=== PATIENT | female | born 1980 | race Hispanic/Latino ===

== ENCOUNTER 2017-12-26 17:50 | Emergency (ER) | payer BC ==
[~2017-12-26] VITALS: Ht 165.1 cm; Wt 72.1 kg
[~2017-12-26 17:50] MED LIST: ALLEGRA ALLERG180 MG PO; CIPRO500 MG PO; CITRACAL PO; DYMISTA NASAL S23 GM; FISH OIL 1,0001 EAC2 PO; OMEPRAZOLE40 MG PO; VITAMIN D PO; ZYRTEC10 M3 PO
[2017-12-26 19:15] LABS: BASOPHILS % 0.5 % (0.0-1.0); EOSINOPHILS # (AUTO) 0.1 (0.0-0.4); EOSINOPHILS % 1.5 % (0.0-6.0); HEMATOCRIT 38.8 % (34.2-44.1); HEMOGLOBIN 12.6 g/dL (12.0-16.0); LYMPHOCYTES # (AUTO) 1.4 (1.0-3.2); MEAN CORPUSCULAR HEMOGLOBIN 28.6 pg (28-32); MEAN CORPUSCULAR HGB CONC 32.5 g/dL (31-35); MONOCYTES # (AUTO) 0.4 (0.2-0.8); MONOCYTES % 8.1 % (4.4-11.3); NEUTROPHILS # (AUTO) 3.5 (2.1-6.9); NEUTROPHILS % 63.7 % (38.7-80.0); PLATELET COUNT 269 x10e3/uL (140-360); RED BLOOD COUNT 4.41 x10e6/uL (3.6-5.1); RED CELL DISTRIBUTION WIDTH 13.1 % (11.7-14.4)
[2017-12-26 19:27] LABS: BILIRUBIN,URINE NEGATIVE (NEGATIVE); CLARITY,URINE HAZY (CLEAR); COLOR,URINE YELLOW (YELLOW); KETONES,URINE NEGATIVE (NEGATIVE); LEUKOCYTE ESTERASE ,URINE 2+ (NEGATIVE); URINE UROBILINOGEN 0.2 mg/dL (0.2 - 1)
[2017-12-26 19:33] LABS: ALANINE AMINOTRANSFERASE 12 IU/L (0-55); ALBUMIN 4.1 g/dL (3.5-5.0); ALBUMIN/GLOBULIN RATIO 1.1 (0.8-2.0); ALKALINE PHOSPHATASE 60 IU/L (40-150); ANION GAP 10.5 mmol/L (8-16); BLOOD UREA NITROGEN 13 mg/dL (7-26); BUN/CREATININE RATIO 16 (6-25); CARBON DIOXIDE 27 mmol/L (22-29); CHLORIDE 107 mmol/L (98-107); EST GLOMERULAR FILTRATION RATE > 60 ML/MIN (60-); GLUCOSE 104 mg/dL (74-118); POTASSIUM 3.5 mmol/L (3.5-5.1); SODIUM 141 mmol/L (136-145)
[2017-12-26 19:35] LABS: NITRITE,URINE POSITIVE (NEGATIVE); PROTEIN,URINE DIPSTICK 1+ (NEGATIVE)
[2017-12-26 19:52] LABS: WBC,URINE (MAN) >50 /HPF (0-5)
[2017-12-26 19:53] LABS: BACTERIA,URINE MANY /HPF; EPITHELIAL CELLS,URINE FEW /LPF
[2017-12-26] MEDS ORDERED: CEFTRIAXONE SOD 1 GM VIAL IV STA (21:16)
[2017-12-26] MEDS ORDERED: MORPHINE SULFATE 2 MG/ML SYR IV STA (21:41)
[2017-12-26] MEDS ORDERED: KETOROLAC TROMETHAMINE 30 MG/ML VIAL IV STA (21:41)
[2017-12-26] MEDS ORDERED: ONDANSETRON HCL INJ 2 MG/ML VIAL IV STA (21:41)
[2017-12-26] MEDS ORDERED: SODIUM CHLORIDE 0.9% 1000ML 1,000 ML IV STA (21:41)
--- NOTE | 2017-12-26 22:38 | Diagnostic Imaging Report ---
EXAM: CT ABDOMEN/PELVIS WO DATE: 12/26/2017 6:07 PM INDICATION: \S\Bilateral flank pain, history of kidney stones \S\[id number] \S\2019 COMPARISON: None TECHNIQUE: The abdomen and pelvis were scanned using a multidetector helical scanner. Coronal and sagittal reformations were obtained. Routine stone protocol performed. Note that technical issues resulted in a delay in interpretation. IV Contrast: None FINDINGS: LOWER THORAX: No consolidations LIVER/BILIARY: No masses. No ductal dilatation. GALLBLADDER: Cholecystectomy SPLEEN: Unremarkable PANCREAS: Unremarkable ADRENALS: No nodules KIDNEYS: Multiple bilateral nonobstructing renal stones. The largest are seen in the right kidney are seen in the interpolar and lower pole regions measuring 4 to 5 mm. The largest in the left kidney are seen in the upper and lower pole regions measuring 3 to 4 mm. The largest of the right lower, the largest measuring 4 to 5 mm of the right interpolar and lower pole regions. There is a 4 mm proximal right ureteral calculus without hydronephrosis. GI TRACT: No distention, wall thickening or evidence of obstruction. Normal appendix. VESSELS: Unremarkable PERITONEUM/RETROPERITONEUM: No free air or fluid LYMPH NODES: Scattered calcified mesenteric right lower quadrant nodes, likely postinfectious or inflammatory. REPRODUCTIVE ORGANS/BLADDER: Unremarkable BONES: No suspicious bone lesions. IMPRESSION: 4 mm right proximal ureteral calculus without hydronephrosis. Multiple nonobstructing bilateral renal calculi. Signed by: Dr Adelia Avina MD on 12/26/2017 10:34 PM
== END 2017-12-26 23:31 | disposition home or self-care (01) ==
LOC: ER 17:50
DX: M54.9 Dorsalgia, unspecified (principal); R10.9 Unspecified abdominal pain; N30.91 Cystitis, unspecified with hematuria; N20.1 Calculus of ureter
CPT/HCPCS: 36415; 74176; 80053; 81001; 81025; 85025; 87086; 87186; 88300; 99284; J0696; J1885; J2405; J7030

== ENCOUNTER → 2018-01-27 | Day surgery (SDC) | payer BC ==
[~2018-01-27] MED LIST changes: +BACTRIM DS TAB1 EACH PO; +BELLADONNA/OPIUM 60 MG SUPP PR ONE; +CARAFATE1 GM/10 ML PO; +CEFTRIAXONE SOD 1 GM VIAL ONE; +COLESTID1 G PO; +DEXAMETHASONE SOD PHOS INJ 4 MG/ML VIAL ONE; +FENTANYL CITRATE/PF 100MCG/2 ML INJ ONE; +IOPAMIDOL 610MG/1ML 300 MG/ML VIAL IV ONE; +LIDOCAINE HCL 2% LOCAL INJ 5 ML SDV VIAL INJ ONE; +MACROBID 100 M100 MG PO; +MIDAZOLAM HCL 2 MG/2 ML VIAL ONE; +ONDANSETRON HCL INJ 2 MG/ML VIAL ONE; +OXYBUTYNIN CHLOR5 MG PO; +PROPOFOL IV EMULSION 10 MG/ML 20 ML VIAL ONE; +PROZAC40 MG PO; +SEVOFLURANE INHAL SOLN 250 ML PEN BTL ONE; +TYLENOL WITH C1 EACH PO
--- OUTSIDE RECORDS SUMMARY | 2018-01-27 10:09 | XMS REPORT ---
[facility] Address Unknown Phone Unavailable Care Team Providers Care Cellular Phone Repairer Name Role Phone MATILDA WILLIAM Unavailable Unavailable Problems This patient has no known problems. Allergies, Adverse Reactions, Alerts This patient has no known allergies or adverse reactions. Medications This patient has no known medications. Results Test Description Test Time Test Comments Text Results Atomic Results Result Comments CT ABDOMEN/PELVIS WO [place] [address] Patient Name: THOMAS MAGALLANES MR #: [id number] : 1980 Age/Sex: 37/F Req #: [id number] Adm Physician: Ordered by: REINIER BRAVO [employer] SAL[employer] SERVICE TECHNICIAN Report #: [id number] Location: ER Room/Bed: Procedure: [id number] CT/CT ABDOMEN/PELVIS WO Exam Date: 12/26/17 Exam Time: 2019 REPORT STATUS: Signed EXAM: CT ABDOMEN/ PELVIS WO DATE: 12/26/2017 6:07 PM INDICATION: S Bilateral flank pain, history of kidney stones S [id number] COMPARISON: None TECHNIQUE: The abdomen and pelvis were scanned using a multidetector helical scanner. Coronal and sagittal reformations were obtained. Routine stone protocol performed. Note that technical issues resulted in a delay in interpretation. IV Contrast: None FINDINGS: LOWER THORAX: No consolidations LIVER/ BILIARY: No masses. No ductal dilatation. GALLBLADDER: Cholecystectomy SPLEEN: Unremarkable PANCREAS: Unremarkable ADRENALS: No nodules KIDNEYS: Multiple bilateral nonobstructing renal stones. The largest are seen in the right kidney are seen in the interpolar and lower pole regions measuring 4 to 5 mm. The largest in the left kidney are seen in the upper and lower pole regions measuring 3 to 4 mm. The largest of the right lower, the largest measuring 4 to 5 mm of the right interpolar and lower pole regions. There is a 4 mm proximal right ureteral calculus without hydronephrosis. GI TRACT : No distention, wall thickening or evidence of obstruction. Normal appendix. VESSELS: Unremarkable PERITONEUM/RETROPERITONEUM: No free air or fluid LYMPH NODES: Scattered calcified mesenteric right lower quadrant nodes, likely postinfectious or inflammatory. REPRODUCTIVE ORGANS/BLADDER: Unremarkable BONES: No suspicious bone lesions. IMPRESSION: 4 mm right proximal ureteral calculus without hydronephrosis. Multiple nonobstructing bilateral renal calculi. Signed by: Dr Kayy Avina MD on 12/26/2017 10: 34 PM Dictated By: KAYY AVINA MD 33 Transcribed By: STAN on 12/26/172233 COPY TO: REINIER BRAVO NP
[2018-01-27 11:08] LABS: BASOPHILS % 0.5 % (0.0-1.0); EOSINOPHILS # (AUTO) 0.1 (0.0-0.4); EOSINOPHILS % 1.3 % (0.0-6.0); HEMATOCRIT 40.5 % (34.2-44.1); HEMOGLOBIN 13.4 g/dL (12.0-16.0); LYMPHOCYTES # (AUTO) 1.9 (1.0-3.2); LYMPHOCYTES % 31.7 % (18.0-39.1); MEAN CORPUSCULAR HEMOGLOBIN 28.4 pg (28-32); MEAN CORPUSCULAR HGB CONC 33.1 g/dL (31-35); MEAN CORPUSCULAR VOLUME 85.8 fL (81-99); MONOCYTES # (AUTO) 0.4 (0.2-0.8); MONOCYTES % 6.9 % (4.4-11.3); NEUTROPHILS # (AUTO) 3.6 (2.1-6.9); NEUTROPHILS % 59.4 % (38.7-80.0); PLATELET COUNT 172 x10e3/uL (140-360); RED BLOOD COUNT 4.72 x10e6/uL (3.6-5.1); RED CELL DISTRIBUTION WIDTH 13.4 % (11.7-14.4)
--- NOTE | 2018-01-27 11:16 | Diagnostic Imaging Report ---
PROCEDURE:X-RAY ABDOMEN - KUB COMPARISON:CT abdomen/pelvis 12/26/2017. INDICATIONS:PREOPERATIVE XRAY FOR ESWL FINDINGS: Bowel: No dilated bowel loops. Bowel gas pattern is unremarkable. Calcifications: Numerous calcifications overlie the right renal shadow, predominately in the interpolar and lower pole regions measuring up to 4 mm. Cluster of calcifications overlying the left renal shadow or in the lower pole and measure up to 4 mm. A calcification in the right ureter measures 3 mm at the inferior endplate of L3. No calcification along the course of left ureter. Organomegaly: None. The gallbladder is absent. Bones/soft tissues: Unremarkable. CONCLUSION: Bilateral intrarenal calculi, the larger burden in the right kidney. Calculus in the mid right ureter as described above. Dictated by: Evangelina Yao M.D. on 01/27/2018 at 11:16 Electronically approved by: Evangelina Yao M.D. on 01/27/2018 at 11:16
[2018-01-27 11:38] LABS: ALANINE AMINOTRANSFERASE 15 IU/L (0-55); ALBUMIN 4.5 g/dL (3.5-5.0); ALBUMIN/GLOBULIN RATIO 1.3 (0.8-2.0); ALKALINE PHOSPHATASE 60 IU/L (40-150); BLOOD UREA NITROGEN 13 mg/dL (7-26); BUN/CREATININE RATIO 14 (6-25); CALCIUM 9.3 mg/dL (8.4-10.2); CARBON DIOXIDE 24 mmol/L (22-29); CHLORIDE 103 mmol/L (98-107); CREATININE, SERUM 0.93 mg/dL (0.57-1.11); EST GLOMERULAR FILTRATION RATE > 60 ML/MIN (60-); GLUCOSE 82 mg/dL (74-118); SODIUM 138 mmol/L (136-145)
--- NOTE | 2018-03-21 14:57 | Operative Report ---
DATE OF PROCEDURE: January 27, 2018 PREOPERATIVE DIAGNOSES 1. Right nephrolithiasis. 2. Right proximal ureterolithiasis. 3. Right distal ureterolithiasis. 4. Right renal colic. 5. Gross hematuria. 6. Left ureteral stricture. 7. Right hydronephrosis due to stone. 8. Left hydronephrosis due to stricture. POSTOPERATIVE DIAGNOSES 1. Right nephrolithiasis. 2. Right proximal ureterolithiasis. 3. Right distal ureterolithiasis. 4. Right hydronephrosis due to stone. 5. Left ureteral stricture. 6. Left hydronephrosis due to stricture. 7. Gross hematuria. 8. Urethral hypermobility. PROCEDURES PERFORMED 1. Right-sided extracorporeal shockwave lithotripsy to the right kidney stone (separately performed for the kidney stone). 2. Right proximal ureteral extracorporeal shockwave lithotripsy (separately performed for the right proximal ureteral stone). 3. Right ureteroscopy with stone manipulation and extraction (separately performed for the distal right ureteral stone). 4. Cystourethroscopy with bilateral ureteral catheterization and retrograde ureteropyelography (separately performed for the gross hematuria). 5. Right cystourethroscopy with insertion of right indwelling ureteral stent (separately performed to relieve hydronephrosis). 6. Left ureteroscopy with dilation of stricture (separately performed for diagnosis of stricture). 7. Urological services for supervision and interpretation for ureteroscopy. 8. Cystourethroscopy with insertion of left indwelling ureteral stent (separately performed to relieve the hydronephrosis). 9. Interpretation of retrograde ureteropyelography. 10. Supervision of fluoroscopy; no radiologist present. 11. Pelvic examination under anesthesia. ANESTHESIA: General. COMPLICATIONS: None. CLINICAL SUMMARY: Radha Willis is a 37-year-old woman who presents with stones. She is brought to the OR for management. She is aware of the risks of bleeding, infection, injury to adjacent structures, and need for additional procedures and elected to proceed. OPERATIVE PROCEDURE IN DETAIL: Informed consent was verified. Radha Willis was properly identified, taken to the operating room, and placed on the lithotripsy table in supine position. Anesthesia was uneventfully begun. The patient's 8-mm lower caliceal stone on the right hand side was localized by the aide of fluoroscopy. Total of 1000 shocks were delivered to this stone with some degree of fragmentation noted in this kidney. The lithotripsy was then localized on the 3-mm right mid-ureteral stone and a total of 2000 shocks were delivered with fragmentation of it. The patient then carefully gently repositioned in dorsal lithotomy position with all pressure points well padded, and her genitalia were prepared and draped in usual sterile fashion. The 22.5-Slovenian cystoscope sheath with visual obturator in place was atraumatically inserted in the patient's urethra and the bladder was drained. Panendoscopy of the bladder revealed no suspicious gross lesions, no tumors, no stones, and no diverticula. Normally positioned and configured ureteral orifices were identified. A ureteral catheter was inserted into the right ureter and retrograde ureteropyelogram was performed. It was inserted in the left ureter and retrograde ureteropyelogram was performed. A guidewire was then placed into the right ureter and guided to the level of the patient's kidney. Semirigid ureteroscope was then placed alongside the guidewire into the distal ureter where we identified a stone. The stone was grasped with the basket, manipulated, and atraumatically extracted and sent for chemical analysis. With cystoscopic and fluoroscopic guidance, a right-sided indwelling ureteral stent was then placed. It was coiled in the patient's kidney as well as patient's bladder. The retaining suture was cut short. A guidewire was then placed into the left ureter. A semirigid ureteroscope was then placed along side the guidewire into the left ureter where we identified a stricture. We gently dilated across this stricture utilizing the ureteroscope. Once we entered the proximal ureter, it appeared to be more dilated. With cystoscopic and fluoroscopic guidance, a left-sided indwelling ureteral stent was then placed. It was coiled in the patient's kidney as well as the patient's bladder with the retaining sutures cut short. Interpretation of retrograde ureteropyelography: Contrast was instilled in the retrograde fashion bilaterally. Stones pipe foreman to the lower caliceal stones on the right hand side in the kidney. There was a proximal mid-ureteral stone in the mid-ureter. There was a distal ureteral stone present. You could see the ureteral stricture on fluoroscopy, and there was hydronephrosis on the left hand side proximal to it. The stents were in good position coiled in patient's kidney as well as the patient's bladder at the end of the case. Patient's bladder was then drained. Cystoscope was withdrawn. Pelvic examination under anesthesias revealed urethral hypermobility. No tumors were palpable to bimanual examination. There were no obvious mucosal lesions. The patient was uneventfully reversed from anesthesia and taken to recovery in stable condition. There were no complications during the procedure. She tolerated the procedure well. Explicit postoperative instructions were given. We will follow the patient up in the office. Eventually, we will take the patient back to the operating room to remove her stents, perform bilateral ureteroscopies, and manage any stones remaining with laser. Job#: [id number] JIGNESH cc:Jamie Cordova MD
== END | disposition home or self-care (01) ==
LOC: OR 10:07
PROVIDERS: ATTEND Urology
DX: N13.2 Hydronephrosis with renal and ureteral calculous obstruction (principal); N13.1 Hydronephrosis with ureteral stricture, not elsewhere classified; N39.0 Urinary tract infection, site not specified; N36.41 Hypermobility of urethra; K21.9 Gastro-esophageal reflux disease without esophagitis; F32.9 Major depressive disorder, single episode, unspecified; Z87.891 Personal history of nicotine dependence; Z84.1 Family history of disorders of kidney and ureter
CPT/HCPCS: 36415; 50590; 52332; 52344; 74018; 80053; 81025; 83970; 84550; 85025; 88300; C1758; C2617; J0696; J1100; J2001; J2250; J2405; Q9967

== ENCOUNTER → 2018-02-12 | Day surgery (SDC) | payer BC ==
[~2018-02-12] MED LIST changes: -BELLADONNA/OPIUM 60 MG SUPP PR ONE; -CEFTRIAXONE SOD 1 GM VIAL ONE; -DEXAMETHASONE SOD PHOS INJ 4 MG/ML VIAL ONE; -IOPAMIDOL 610MG/1ML 300 MG/ML VIAL IV ONE; -LIDOCAINE HCL 2% LOCAL INJ 5 ML SDV VIAL INJ ONE; -ONDANSETRON HCL INJ 2 MG/ML VIAL ONE; -SEVOFLURANE INHAL SOLN 250 ML PEN BTL ONE
--- NOTE | 2018-02-12 18:13 | Operative Report ---
DATE OF PROCEDURE: February 12, 2018 REFERRING PHYSICIAN: Dr. Jamie Reyes. PROCEDURE PERFORMED: Esophagogastroduodenoscopy with esophageal dilatation and biopsies and a colonoscopy with polypectomy and biopsies. INDICATIONS FOR ESOPHAGOGASTRODUODENOSCOPY: Dysphagia, nausea, heartburn and indigestion. INDICATIONS FOR COLONOSCOPY: Chronic diarrhea, hematochezia. MEDICATION: Patient was done under MAC. Please see anesthesiologist's note. PROCEDURE: With patient in the left lateral decubitus position, flexible fiberoptic Olympus gastroscope was introduced into the esophagus under direct visualization without any difficulty. There was some patchy erythema noted in distal esophagus. There was a mild stricture noted at the GE junction that was dilated to a size 52-[place] Landa. The scope was then advanced with ease into the stomach and mucosa overlying the antrum and the body revealed some patchy erythema and mild to moderate edema and biopsies were obtained and sent to stain for H. pylori. Hyperplastic appearing polyps were noted in the body of the stomach. Some were partially excised with cold biopsy forceps. The pylorus was of normal contour and shape. Was intubated with ease and the scope was advanced all the way to the 2nd portion of the duodenum. The scope was then withdrawn slowly and mucosa overlying the proximal 2nd portion grossly appeared to be within normal limits. Some of the folds might be a little scalloped and biopsies were obtained to rule out sprue. The mucosa overlying the duodenal bulb appeared to be within normal limits. The scope was then withdrawn back into the stomach and retroflexed and mucosa overlying the fundus and the cardia appeared to be within normal limits. The scope was then straightened out. The stomach was decompressed. Scope was subsequently withdrawn. Patient tolerated the procedure well. IMPRESSION: 1. Distal esophagitis, mild. 2. Esophageal stricture at gastroesophageal junction dilated to a size 52-[place] Landa. 3. Gastritis, biopsied. Biopsy sent to stain for H. pylori. 4. Rule out sprue. PLAN: Follow up histology. Continue omeprazole 40 mg 1 p.o. a.c. b.i.d. PROCEDURE: Patient was then turned around and after adequate lubrication of the anal canal, a flexible fiberoptic Olympus colonoscope was inserted into the rectum with ease and advanced all the way to the cecum. Mucosa overlying the cecum appeared to be within normal limits. The ileocecal valve was intubated. Scope was advanced into the terminal ileum. Biopsies were obtained. The scope was then withdrawn back into the colon. It was then withdrawn slowly. Mucosa overlying the ascending and transverse colon appeared to be within normal limits. There were mild inflammatory changes noted in the left colon. Multiple random biopsies were obtained. Two polyps were hot biopsied from the sigmoid colon and biopsies were obtained from the rectum. The scope was then retroflexed into the distal rectum. Small internal hemorrhoids were noted, none of which was actively bleeding. The scope was then straightened out. The rectosigmoid area as well as the distal rectal area were decompressed. The scope was subsequently withdrawn after securing an adequate stool specimen that was sent for the appropriate stool studies. Patient tolerated the procedure well. IMPRESSION 1. Terminal ileum, biopsied. 2. Mild patchy left-sided colitis. Random biopsies obtained. 3. Sigmoid colon polyps times 2, hot biopsied. 4. Proctitis. PLAN: Follow up histology. Follow up stool studies. Initiate VSL#3 DS one p.o. b.i.d. The patient might benefit from a followup colonoscopy in 5 years. Job#: [id number] cc:JAMIE REYES MD
[2018-02-12 18:49] LABS: WBC,FECAL (FECAL LACTOFERRIN) POSITIVE (NEGATIVE)
[2018-02-13 13:13] LABS: C DIFFICILE TOXIN A&B AMP PROB **POSITIVE** (NEGATIVE)
== END | disposition home or self-care (01) ==
LOC: OR 20:16
PROVIDERS: ATTEND Internal Medicine Gastroenterology
DX: K29.70 Gastritis, unspecified, without bleeding (principal); K63.5 Polyp of colon; K31.7 Polyp of stomach and duodenum; K22.2 Esophageal obstruction; K51.50 Left sided colitis without complications; K20.9 Esophagitis, unspecified; K62.89 Other specified diseases of anus and rectum; D72.820 Lymphocytosis (symptomatic); Z01.812 Encounter for preprocedural laboratory examination; Z68.25 Body mass index [BMI] 25.0-25.9, adult; Z87.891 Personal history of nicotine dependence
CPT/HCPCS: 43239; 43450; 45380; 45384; 81025; 83630; 83993; 86039; 87045; 87177; 87328; 87493; J2250

== ENCOUNTER 2018-02-13 20:57 | Emergency (ER) | payer BC ==
[~2018-02-13] VITALS: Ht 165.1 cm; Wt 72.1 kg
[~2018-02-13 20:57] MED LIST changes: -FENTANYL CITRATE/PF 100MCG/2 ML INJ ONE; -MIDAZOLAM HCL 2 MG/2 ML VIAL ONE; -PROPOFOL IV EMULSION 10 MG/ML 20 ML VIAL ONE
[2018-02-13 22:53] LABS: BASOPHILS % 0.3 % (0.0-1.0); EOSINOPHILS # (AUTO) 0.2 (0.0-0.4); EOSINOPHILS % 2.5 % (0.0-6.0); HEMATOCRIT 36.5 % (34.2-44.1); LYMPHOCYTES # (AUTO) 1.7 (1.0-3.2); MEAN CORPUSCULAR HEMOGLOBIN 28.4 pg (28-32); MEAN CORPUSCULAR HGB CONC 32.9 g/dL (31-35); MEAN CORPUSCULAR VOLUME 86.3 fL (81-99); MONOCYTES # (AUTO) 0.6 (0.2-0.8); MONOCYTES % 9.1 % (4.4-11.3); NEUTROPHILS # (AUTO) 4.3 (2.1-6.9); NEUTROPHILS % 62.8 % (38.7-80.0); PLATELET COUNT 291 x10e3/uL (140-360); RED BLOOD COUNT 4.23 x10e6/uL (3.6-5.1); RED CELL DISTRIBUTION WIDTH 13.6 % (11.7-14.4)
[2018-02-13 23:01] LABS: BILIRUBIN,URINE NEGATIVE (NEGATIVE); CLARITY,URINE CLOUDY (CLEAR); COLOR,URINE AMBER (YELLOW); KETONES,URINE NEGATIVE (NEGATIVE); LEUKOCYTE ESTERASE ,URINE 2+ (NEGATIVE); NITRITE,URINE NEGATIVE (NEGATIVE); PREGNANCY TEST, URINE NEGATIVE (NEGATIVE); URINE UROBILINOGEN 0.2 mg/dL (0.2 - 1)
[2018-02-13 23:03] LABS: PROTEIN,URINE DIPSTICK 2+ (NEGATIVE)
[2018-02-13 23:18] LABS: BACTERIA,URINE MANY /HPF; CALCIUM OXALATE CRYSTALS,UR FEW (FEW); EPITHELIAL CELLS,URINE FEW /LPF; RBC,URINE >50 /HPF (0-5); WBC,URINE (MAN) >50 /HPF (0-5)
[2018-02-13 23:19] LABS: ALANINE AMINOTRANSFERASE 14 IU/L (0-55); ALBUMIN 3.7 g/dL (3.5-5.0); ALKALINE PHOSPHATASE 60 IU/L (40-150); ANION GAP 11.5 mmol/L (8-16); BLOOD UREA NITROGEN 11 mg/dL (7-26); BUN/CREATININE RATIO 14 (6-25); CALCIUM 9.6 mg/dL (8.4-10.2); CARBON DIOXIDE 23 mmol/L (22-29); CHLORIDE 102 mmol/L (98-107); CREATININE, SERUM 0.79 mg/dL (0.57-1.11); EST GLOMERULAR FILTRATION RATE > 60 ML/MIN (60-); GLUCOSE 96 mg/dL (74-118); POTASSIUM 3.5 mmol/L (3.5-5.1); SODIUM 133 mmol/L (136-145)
[2018-02-13 23:19] LABS: MUCUS,URINE FEW (RARE)
--- NOTE | 2018-02-13 23:32 | Diagnostic Imaging Report ---
ABDOMEN-1VIEW (KUB) Clinical history: \S\ASSES RIGHT URETERAL STENT PLACEMENT \S\Y Technique: AP view abdomen Comparison: 01/27/2018, CT 12/26/2017 Findings: Status post bilateral double-J ureteral stent placement projecting from the expected renal pelvis to the bladder. Bilateral nephrolithiasis. 4 to 5 mm stone is seen along the right proximal ureteral stent. Right pelvic phlebolith. Nonobstructive bowel gas pattern. Cholecystectomy clips. Impression: Bilateral double-J ureteral stents project from expected renal pelvis to the bladder. 4 to 5 mm stone is seen along the right proximal ureteral stent. Bilateral nephrolithiasis. Signed by: Dr Adelia Avina MD on 02/13/2018 11:28 PM
[2018-02-14 00:15] VITALS: BP 115/79
== END 2018-02-14 00:20 | disposition home or self-care (01) ==
LOC: ER 20:57
DX: R10.30 Lower abdominal pain, unspecified (principal); N30.91 Cystitis, unspecified with hematuria
CPT/HCPCS: 36415; 74018; 80053; 81001; 81025; 85025; 87086; 99284

== ENCOUNTER 2018-03-29 21:31 | Emergency (ER) | payer BC ==
[~2018-03-29] VITALS: Ht 165.1 cm; Wt 72.1 kg
--- OUTSIDE RECORDS SUMMARY | 2018-03-29 21:35 | XMS REPORT | Continuity of Care Document ---
Author Author [facility] Organization [facility] Address [address] [place] [address] Phone Unavailable Care Team Providers Care Item Processing Clerk Name Role Phone HOLDEN REYES MD PCP Insurance Providers Guarantor Radha Magallanes Address [address] [place] [address] Email [email or web address] Payer [facility] Ppo Policy Number [id number] Subscriber's Name Magallanes,Radha Relationship 18 Self / Same As Patient Group Number [id number] Group Name [facility] Effective Date 17 Advance Directives Directive Response Recorded Date/Time Does the patient have an advance directive? No 06/17/13 2:08pm If yes, is advance [facility]? No 06/17/13 2:08pm If not on file with [facility] will patient provide a copy? No 06/17/13 2:08pm Do you have a Directive to Physician? No 02/13/18 8:54pm Do you have a Medical Power of Card Fixer? No 02/13/18 8:54pm Do you have an out of hospital Do Not Resuscitate Order? No 02/13/18 8:54pm Do you have any special needs we should be aware of? No 02/13/18 8:54pm Do you have a support person here with you today? Yes 02/13/18 8:54pm Did patient receive Notice of Privacy Practices? Yes 02/13/18 8:54pm Did patient receive patient rights and responsibilities? Yes 02/13/18 8:54pm Problems No problem information available. Medications Current Home Medications Medication Dose Units Route Directions Days Qty Instructions Start Date Acetaminophen With Codeine (Tylenol With Codeine #3 Tablet) 1 Each Tablet 300 Mg Oral As Needed Colestipol Hcl (Colestid) 1 G Tab 1 Gm Oral Daily Fluoxetine Hcl (Prozac) 40 Mg Capsule 40 Mg Oral Daily Nitrofurantoin Monohyd/M-Cryst (Macrobid 100 Mg Capsule) 100 Mg Capsule 100 Mg Oral Daily Omeprazole 40 Mg Capsule.dr 40 Mg Oral Twice A Day Oxybutynin Chloride 5 Mg Tablet 5 Mg Oral Tidprn 30 Tab Sucralfate (Carafate) 1 Gm/10 Ml Oral.susp 1 Gm Oral Four Times Daily Past Home Medications Medication Directions Ordered Status Azelastine/Fluticasone (Dymista Nasal [place]) 23 Gm [place].pump, Nasal Twice A Day Discontinued Cetirizine Hcl (Zyrtec) 10 Mg Capsule, 10 Mg Oral Daily Discontinued Ciprofloxacin Hcl (Cipro) 500 Mg Tablet, 500 Mg Oral Every 12 Hours Discontinued Fexofenadine Hcl (Sophia Allergy) 180 Mg Tablet, 180 Mg Oral Daily Discontinued [place]-3 Fatty Acids/Fish Oil (Fish Oil 1,000 Mg Capsule) 1 Each Capsule, Oral Three Times A Day Discontinued Sulfamethoxazole/Trimethoprim (Bactrim Ds Tablet) 1 Each Tablet, 1 Tab Oral Daily Discontinued Social History Smoking Status Start Date Stop Date Never Smoker Hospital Discharge Instructions No hospital discharge instruction information available. Plan of Care Discharge Date 02/14/18 12:20am Disposition HOME, SELF-CARE Condition at Discharge Stable Instructions/Education Provided Urinary Tract Infection - Women Forms Provided Work/School Excuse Prescriptions See Medication Section Referrals DOLORES GRACE MD Order Date: Call for an appointment Address: [address] [place] [id number] Additional Instructions/Education TAKE MEDS DIRECTED FOLLOW UP WITH UROLOGIST INCREASE FLUID INTAKE RETURN TO THE ER NEEDED Functional Status No functional status information available. Allergies, Adverse Reactions, Alerts No known allergies. Immunizations No immunization information available. Vital Signs Acute Vital Signs Vital Response Date/Time Temperature (Fahrenheit) 98.0 degrees F (97.6 - 99.5) 02/14/2018 12:15am Pulse Pulse Rate (adult) 79 bpm (60 - 90) 02/14/2018 12:15am Respiratory Rate 18 bpm (12 - 24) 02/14/2018 12:15am Blood Pressure 115/79 mm Hg 02/14/2018 12:15am Height 5 ft 5 in 02/13/2018 9:18pm Weight 159 lb 02/13/2018 9:18pm Body Mass Index 26.5 kg/m^2 02/13/2018 9:18pm Results Laboratory Results Test Name Result Units Flags Reference Collection Date/Time Result Date/ Time Comments Uric Acid 3.2 mg/dL 2.6-8.0 01/27/2018 10:55am 01/27/2018 11:38am Parathyroid Hormone 31 pg/mL 15-65 01/27/2018 10:55am 01/28/2018 7: 08am Calcium (Send out) 9.8 mg/dL 8.7-10.2 01/27/2018 10:55am 01/28/2018 7: 08am Parathyroid Hormone Interpretation Comment . 01/27/2018 10:55am 01/28 7:08am Interpretation Intact PTH Calcium (pg/mL) (mg/dL) Normal 15 - 65 8.6 - 10.2 Primary Hyperparathyroidism >65 >10.2 Secondary Hyperparathyroidism >65 <10.2 Non-Parathyroid Hypercalcemia <65 >10.2 Hypoparathyroidism <15 < 8.6 Non-Parathyroid Hypocalcemia 15 - 65 < 8.6 Performed at: - [facility] [id number] Lower In Supervisor: Modesto Bradley MD, Phone: [phone] Performed at: - [facility] [id number] Lower In Supervisor: Lawson Garcia MD, Phone: [phone] Stool Lactoferrin (LAB) POSITIVE H NEGATIVE 02/12/2018 4:53pm 2017 6:49pm Testing on stool aspirate specimens is outside american history teacher claims since specimen type not validated on this assay. Anti-Nuclear Antibody Screen Negative . 02/11/2018 2:35pm 02/12/2018 12:07pm Negative <1:80 Borderline 1:80 Positive >1:80 Performed at: HD - [facility] [id number] Lower In Supervisor: Modesto Bradley MD, Phone: [phone] Clostridium Difficile Toxin A & B POSITIVE H NEGATIVE 02/12/2018 4: 53pm 02/13/2018 1:13pm Results called Kristen at 1312 on 02/13/18 by Danica Kay. RB OK. Results called to KATIA NOEL in infection control at 1312 on 02/13/18 by Danica Kay. Testing on stool aspirate specimens is outside american history teacher claims since specimen type not validated on this assay. White Blood Count 6.89 x10e3/uL 4.8-10.8 02/13/2018 9:25pm 02/13/2018 11:00pm Red Blood Count 4.23 x10e6/uL 3.6-5.1 02/13/2018 9:25pm 02/13/2018 11: 00pm Hemoglobin 12.0 g/dL 12.0-16.0 02/13/2018 9:25pm 02/13/2018 11:00pm Hematocrit 36.5 % 34.2-44.1 02/13/2018 9:25pm 02/13/2018 11:00pm Mean Corpuscular Volume 86.3 fL 81-99 02/13/2018 9:25pm 02/13/2018 11: 00pm Mean Corpuscular Hemoglobin 28.4 pg 28-32 02/13/2018 9:25pm 02/13/2018 11:00pm Mean Corpuscular Hemoglobin Concent 32.9 g/dL 31-35 02/13/2018 9:25pm 02/13/2018 11:00pm Red Cell Distribution Width 13.6 % 11.7-14.4 02/13/2018 9:25pm 2017 11:00pm Platelet Count 291 x10e3/uL 140-360 02/13/2018 9:25pm 02/13/2018 11: 00pm Neutrophils (%) (Auto) 62.8 % 38.7-80.0 02/13/2018 9:25pm 02/13/2018 11 :00pm Lymphocytes (%) (Auto) 25.0 % 18.0-39.1 02/13/2018 9:25pm 02/13/2018 11 :00pm Monocytes (%) (Auto) 9.1 % 4.4-11.3 02/13/2018 9:25pm 02/13/2018 11: 00pm Eosinophils (%) (Auto) 2.5 % 0.0-6.0 02/13/2018 9:25pm 02/13/2018 11: 00pm Basophils (%) (Auto) 0.3 % 0.0-1.0 02/13/2018 9:25pm 02/13/2018 11: 00pm IM GRANULOCYTES % 0.3 % 0.0-1.0 02/13/2018 9:25pm 02/13/2018 11:00pm Neutrophils # (Auto) 4.3 2.1-6.9 02/13/2018 9:25pm 02/13/2018 11: 00pm Lymphocytes # (Auto) 1.7 1.0-3.2 02/13/2018 9:25pm 02/13/2018 11: 00pm Monocytes # (Auto) 0.6 0.2-0.8 02/13/2018 9:25pm 02/13/2018 11:00pm Eosinophils # (Auto) 0.2 0.0-0.4 02/13/2018 9:25pm 02/13/2018 11: 00pm Basophils # (Auto) 0.0 0.0-0.1 02/13/2018 9:25pm 02/13/2018 11:00pm Absolute Immature Granulocyte (auto 0.02 x10e3/uL 0-0.1 02/13/2018 9: 25pm 02/13/2018 11:00pm Urine Color GIULIANA H YELLOW 02/13/2018 10:55pm 02/13/2018 11:03pm Urine Clarity CLOUDY H CLEAR 02/13/2018 10:55pm 02/13/2018 11:03pm Urine Specific [place] 1.020 1.010-1.025 02/13/2018 10:55pm 2017 11:03pm Urine pH 6 5 - 7 02/13/2018 10:55pm 02/13/2018 11:03pm Urine Leukocyte Esterase 2+ H NEGATIVE 02/13/2018 10:55pm 02/13/2018 11:03pm Urine Nitrite NEGATIVE NEGATIVE 02/13/2018 10:55pm 02/13/2018 11: 03pm Urine Protein 2+ H NEGATIVE 02/13/2018 10:55pm 02/13/2018 11:03pm Urine Glucose (UA) NEGATIVE NEGATIVE 02/13/2018 10:55pm 02/13/2018 11 :03pm Urine Ketones NEGATIVE NEGATIVE 02/13/2018 10:55pm 02/13/2018 11: 03pm Urine Urobilinogen 0.2 mg/dL 0.2 - 1 02/13/2018 10:55pm 02/13/2018 11: 03pm Urine Bilirubin NEGATIVE NEGATIVE 02/13/2018 10:55pm 02/13/2018 11: 03pm Urine Blood 4+ H NEGATIVE 02/13/2018 10:55pm 02/13/2018 11:03pm Urine WBC >50 /HPF H 0-5 02/13/2018 10:55pm 02/13/2018 11:19pm Urine RBC >50 /HPF H 0-5 02/13/2018 10:55pm 02/13/2018 11:19pm Urine Bacteria MANY /HPF H NONE 02/13/2018 10:55pm 02/13/2018 11:19pm Urine Epithelial Cells FEW /LPF NONE 02/13/2018 10:55pm 02/13/2018 11: 19pm Urine Calcium Oxalate Crystals FEW FEW 02/13/2018 10:55pm 02/13/2018 11:19pm Urine Mucus FEW H RARE 02/13/2018 10:55pm 02/13/2018 11:19pm Urine Test NEGATIVE NEGATIVE 02/13/2018 10:55pm 02/13/2018 11:01pm Sodium Level 133 mmol/L L 136-145 02/13/2018 9:25pm 02/13/2018 11:21pm Potassium Level 3.5 mmol/L 3.5-5.1 02/13/2018 9:25pm 02/13/2018 11: 21pm Chloride Level 102 mmol/L 98-107 02/13/2018 9:25pm 02/13/2018 11:21pm Carbon Dioxide Level 23 mmol/L 2202/13/2018 9:25pm 02/13/2018 11: 21pm Anion Gap 11.5 mmol/L 8-02/13/2018 9:25pm 02/13/2018 11:21pm Blood Urea Nitrogen 11 mg/dL 7-02/13/2018 9:25pm 02/13/2018 11:21pm Creatinine 0.79 mg/dL 0.57-1.11 02/13/2018 9:25pm 02/13/2018 11:21pm BUN/Creatinine Ratio 14 6-25 02/13/2018 9:25pm 02/13/2018 11:21pm Estimat Glomerular Filtration Rate > 60 ML/MIN 60- 02/13/2018 9:25pm 11:21pm Ranges were taken from the National Kidney Disease Education Program and the National Kidney Foundation literature. Reference ranges: 60 or greater: Normal 16-59 (for 3 consecutive months): Chronic kidney disease 15 or less: Kidney failure Glucose Level 96 mg/dL 74-118 02/13/2018 9:25pm 02/13/2018 11:21pm Calcium Level 9.6 mg/dL 8.4-10.2 02/13/2018 9:25pm 02/13/2018 11:21pm Total Bilirubin 0.5 mg/dL 0.2-1.2 02/13/2018 9:25pm 02/13/2018 11:21pm Aspartate Amino Transf (AST/SGOT) 10 IU/L 5-34 02/13/2018 9:25pm 2017 11:21pm Alanine Aminotransferase (ALT/SGPT) 14 IU/L 0-55 02/13/2018 9:25pm 11:21pm Total Protein 7.3 g/dL 6.5-8.1 02/13/2018 9:25pm 02/13/2018 11:21pm Albumin 3.7 g/dL 3.5-5.0 02/13/2018 9:25pm 02/13/2018 11:21pm Globulin 3.6 g/dL H 2.3-3.5 02/13/2018 9:25pm 02/13/2018 11:21pm Albumin/Globulin Ratio 1.0 0.8-2.0 02/13/2018 9:25pm 02/13/2018 11: 21pm Alkaline Phosphatase 60 IU/L 40-150 02/13/2018 9:25pm 02/13/2018 11: 21pm Microbiology Results Procedure Source Organism/Result Collection Date/Time Result Date/Time Result Status Urine Culture Urine,Clean Catch ESCHERICHIA COLI 12/26/2017 6:25pm 2017 8:11am Final Procedures Procedure Status Date Provider(s) EGD DILATE STRICTURE Completed 08/19/17 HILTON HATFIELD MD DILATE ESOPHAGUS 1/MULT PASS Completed 08/19/17 HILTON HATFIELD MD Cystoscopy with retrograde pyelography Completed 01/27/18 DOLORES GRACE MD Extracorporeal shock wave lithotripsy (ESWL) Completed 01/27/18 DOLORES GRACE MD Ureter stent placement Completed 01/27/18 DOLORES GRACE MD Colonoscopy with biopsy Completed 02/12/18 HILTON HATFIELD MD EGD with biopsy Completed 02/12/18 HILTON HATFIELD MD EGD with biopsy Completed 02/12/18 HILTON HATFIELD MD Colonoscopy with polypectomy Completed 02/12/[address] of abdomen and pelvis without contrast Active 12/26/17 REINIER BRAVO NUT STEAMER Encounters Encounter Location Arrival/Admit Date Discharge/Depart Date Attending Provider Departed Emergency Room [facility] 02/13/18 8:57pm 12:20am ZEE RIBEIRO MD Registered Surgical Day Care [facility] 02/12/18 8:16pm HILTON HATFIELD MD Registered Surgical Day Care [facility] 01/27/18 10:07am DOLORES GRACE MD Departed Emergency Room [facility] 12/26/17 5:50pm 11:31pm MATILDA WILLIAM MD Registered Surgical Day Care [facility] 08/19/17 1:19pm HILTON HATFIELD MD
[2018-03-29] MEDS ORDERED: PREDNISONE 20 MG TAB PO ONE (22:30)
[2018-03-30 01:41] VITALS: BP 121/66
== END 2018-03-29 22:30 | disposition home or self-care (01) ==
LOC: FSED 21:31
DX: R05 Cough (principal); J20.9 Acute bronchitis, unspecified
CPT/HCPCS: 87086

== ENCOUNTER → 2018-04-13 | Day surgery (SDC) | payer BC ==
[2018-04-12 15:17] LABS: BASOPHILS % 0.5 % (0.0-1.0); EOSINOPHILS # (AUTO) 0.2 (0.0-0.4); HEMOGLOBIN 11.3 g/dL (12.0-16.0); LYMPHOCYTES % 23.2 % (18.0-39.1); MEAN CORPUSCULAR HGB CONC 32.3 g/dL (31-35); MEAN CORPUSCULAR VOLUME 86.8 fL (81-99); MONOCYTES # (AUTO) 0.6 (0.2-0.8); MONOCYTES % 6.8 % (4.4-11.3); NEUTROPHILS # (AUTO) 5.8 (2.1-6.9); NEUTROPHILS % 67.2 % (38.7-80.0); PLATELET COUNT 348 x10e3/uL (140-360); RED BLOOD COUNT 4.03 x10e6/uL (3.6-5.1)
[2018-04-12 15:32] LABS: ANION GAP 12.8 mmol/L (8-16); BLOOD UREA NITROGEN 16 mg/dL (7-26); BUN/CREATININE RATIO 19 (6-25); CARBON DIOXIDE 25 mmol/L (22-29); CHLORIDE 105 mmol/L (98-107); CREATININE, SERUM 0.85 mg/dL (0.57-1.11); EST GLOMERULAR FILTRATION RATE > 60 ML/MIN (60-); GLUCOSE 82 mg/dL (74-118); POTASSIUM 3.8 mmol/L (3.5-5.1); SODIUM 139 mmol/L (136-145)
[~2018-04-13] MED LIST changes: +BELLADONNA/OPIUM 60 MG SUPP PR ONE; +CEFTRIAXONE SOD 1 GM VIAL ONE; +DEXAMETHASONE SOD PHOS INJ 4 MG/ML VIAL ONE; +FENTANYL CITRATE/PF 100MCG/2 ML INJ ONE; +IOPAMIDOL 610MG/1ML 300 MG/ML VIAL IV ONE; +KETOROLAC TROMETHAMINE 30 MG/ML VIAL ONE; +LEVAQUIN500 MG PO; +LIDOCAINE HCL 2% LOCAL INJ 5 ML SDV VIAL INJ ONE; +METOCLOPRAMIDE HCL 10 MG/2ML VIAL ONE; +MIDAZOLAM HCL 2 MG/2 ML VIAL ONE; +ONDANSETRON HCL 4 MG ORAL DISINTEGRATING TAB ONE; +ONDANSETRON HCL INJ 2 MG/ML VIAL ONE; +OSCAL-D PO; +PROPOFOL IV EMULSION 10 MG/ML 20 ML VIAL ONE; +SEVOFLURANE INHAL SOLN 250 ML PEN BTL ONE; +VITAMIN D32000 UNI1 PO
--- NOTE | 2018-04-13 06:35 | Diagnostic Imaging Report ---
EXAM: ABDOMEN-1VIEW (KUB) DATE: 04/13/2018 5:36 AM Time stamp on exam: 05:44 AM INDICATION: Renal stones. COMPARISON: 02/13/2018 FINDINGS: LINES/TUBES: Bilateral double-J ureteral stents are present BOWEL PATTERN: No evidence for obstruction. SOFT TISSUES: There is evidence of bilateral nephrolithiasis, the largest lateral inferior pole of the right kidney measuring 6 mm in maximum dimension. Additional grouped stones are visualized in the medial inferior pole of the right kidney as well as in the lateral inferior pole of the left kidney. There is a stable 4 mm stone abutting the proximal right stent. LUNG BASES: Not included BONES: No acute findings. IMPRESSION: 1. Stable bilateral nephrolithiasis, the largest measuring 6 mm in diameter. 2. 4 mm proximal right ureteral stone abutting the right stent Signed by: Dr. David Louis M.D. on 04/13/2018 6:31 AM
--- OUTSIDE RECORDS SUMMARY | 2018-04-13 07:20 | XMS REPORT | Continuity of Care Document ---
Author Author [facility] Organization [facility] Address [address] [place] [address] Phone Unavailable Care Team Providers Care Stretcher Drier Operator Name Role Phone HOLDEN REYSE MD PCP Insurance Providers Guarantor Radha Magallanes Address [address] [place] [address] Email [email or web address] Payer [facility] Ppo Policy Number [id number] Subscriber's Name Radha Magallanes Relationship 18 Self / Same As Patient Group Number [id number] Group Name [facility] Effective Date 17 Advance Directives Directive Response Recorded Date/Time Does the patient have an advance directive? No 06/17/13 2:08pm If yes, is advance directive on file with [facility]? No 06/17/13 2:08pm If not on file with [facility] will patient provide a copy? Yes 03/29/18 9:29pm Do you have a Directive to Physician? No 03/29/18 9:29pm Do you have a Medical Power of Chief Projectionist? No 03/29/18 9:29pm Do you have an out of hospital Do Not Resuscitate Order? No 03/29/18 9:29pm Do you have any special needs we should be aware of? No 03/29/18 9:29pm Do you have a support person here with you today? Yes 03/29/18 9:29pm Did patient receive Notice of Privacy Practices? Yes 03/29/18 9:29pm Did patient receive patient rights and responsibilities? Yes 03/29/18 9:29pm Problems No problem information available. Medications Current [...] Medication Directions Ordered Status Azelastine/Fluticasone (Dymista Nasal [place]) 23 Gm [place].pump, Nasal Twice A Day Discontinued Cetirizine Hcl (Zyrtec) 10 Mg Capsule, 10 Mg Oral Daily Discontinued Ciprofloxacin Hcl (Cipro) 500 Mg Tablet, 500 Mg Oral Every 12 Hours Discontinued Fexofenadine Hcl (Sophia Allergy) 180 Mg Tablet, 180 Mg Oral Daily Discontinued [place]-3 Fatty Acids/Fish Oil (Fish Oil 1,000 Mg Capsule) 1 Each Capsule, Oral Three Times A Day Discontinued Sulfamethoxazole/Trimethoprim (Bactrim Ds Tablet) 1 Each Tablet, 1 Tab Oral Daily Discontinued Social History Smoking Status Start Date Stop Date Never Smoker Hospital Discharge Instructions No hospital discharge instruction information available. Plan of Care Discharge Date 03/29/18 10:30pm Disposition HOME, SELF-CARE Condition at Discharge Stable Instructions/Education Provided Bronchitis (Acute) - Adult Forms Provided Work/School Excuse Prescriptions See Medication Section Functional Status No functional status information available. Allergies, Adverse Reactions, Alerts No known allergies. Immunizations No immunization information available. Vital Signs Acute Vital Signs Vital Response Date/Time Temperature (Fahrenheit) 98.0 degrees F (97.6 - 99.5) 02/14/2018 12:15am Pulse Pulse Rate (adult) 91 bpm (60 - 90) 03/30/2018 1:41am Respiratory Rate 16 bpm (12 - 24) 03/30/2018 1:41am Blood Pressure 121/66 mm Hg 03/30/2018 1:41am Height 5 ft 5 in 03/29/2018 9:50pm Weight 159 lb 03/29/2018 9:50pm Body Mass Index 26.5 kg/m^2 03/29/2018 9:50pm Results Laboratory Results Test Name Result Units [...] 15 - 65 < 8.6 Performed at: [address] [id number] Wafer Abrading Machine Tender: Modesto Bradley MD, Phone: [phone] Performed at: [address] [id number] Wafer Abrading Machine Tender: Lawson Garcia MD, Phone: [phone] Stool Lactoferrin (LAB) POSITIVE H NEGATIVE 02/12/2018 4:53pm 2017 6:49pm Testing on stool aspirate specimens is outside bog worker claims since specimen type not validated on this assay. Stool Calprotectin <16 ug/g 0-120 02/12/2018 3:13pm 02/18/2018 5:13am Concentration Interpretation Follow-Up <16 - 50 ug/g Normal None >50 -120 ug/g Borderline Re-evaluate in 4-6 weeks >120 ug/g Abnormal Repeat as clinically indicated Performed at: [address] [id number] Wafer Abrading Machine Tender: Lawson Garcia MD, Phone: [phone] Anti-Nuclear Antibody Screen Negative . 02/11/2018 2:35pm 02/12/2018 12:07pm Negative <1:80 Borderline 1:80 Positive >1:80 Performed at: [address] [id number] Wafer Abrading Machine Tender: Modesto Bradley MD, Phone: [phone] Clostridium Difficile Toxin A & B POSITIVE H NEGATIVE 02/12/2018 4: 53pm 02/13/2018 1:13pm Results called Kristen at 1312 on 02/13/18 by Danica Kay. RB OK. Results called to KATIA NOEL in infection control at 1312 on 02/13/18 by Danica Kay. Testing on stool aspirate specimens is outside bog worker claims since specimen type not validated on [...] CLEAR 02/13/2018 10:55pm 02/13/2018 11:03pm Urine Specific [place] 1.020 1.010-1.025 02/13/2018 10:55pm 2017 11:03pm Urine [...] 02/13/2018 11:21pm Carbon Dioxide Level 23 mmol/L 22-02/13/2018 9:25pm 02/13/2018 11: 21pm Anion Gap 11.5 mmol/L 8-16 02/13/2018 9:25pm 02/13/2018 11:21pm Blood Urea Nitrogen 11 mg/dL 7-26 02/13/2018 9:25pm 02/13/2018 11:21pm Creatinine 0.79 mg/dL 0.57-1.11 [...] Date/Time Result Status Urine Culture Urine,Clean Catch TRAY ALBICANS 02/13/2018 10:55pm 2017 1:41pm Final Procedures Procedure Status Date Provider(s) EGD DILATE STRICTURE Completed 08/19/17 HILTON HATFIELD MD DILATE ESOPHAGUS 1/MULT PASS Completed 08/19/17 HILTON HATFIELD MD FRAGMENTING OF KIDNEY STONE Completed 01/27/18 DOLORES GRACE MD CYSTOSCOPY AND TREATMENT Completed 01/27/18 DOLORES GRACE MD CYSTO/URETERO STRICTURE [place] Completed 01/27/18 DOLORES GRACE MD EGD BIOPSY SINGLE/MULTIPLE Completed 02/12/18 HILTON HATFIELD MD DILATE ESOPHAGUS 1/MULT PASS Completed 02/12/18 HILTON HATFIELD MD COLONOSCOPY AND BIOPSY Completed 02/12/18 HILTON HATFIELD MD COLONOSCOPY W/LESION REMOVAL Completed 02/12/[address] of abdomen and pelvis without contrast Active 12/26/17 REINIER BRAVO CLOUD AUTOMATION TESTER Encounters Encounter Location Arrival/Admit Date Discharge/Depart Date Attending Provider [facility] 03/29/18 9:31pm 10:30pm HILTON RALPH MD [facility]ed [facility] 02/13/18 8:57pm 12:20am ZEE RIBEIRO MD Registered Surgical Day Care [facility] 02/12/18 8:16pm HILTON HATFIELD MD Registered Surgical Day Care [facility] 01/27/18 10:07am DOLORES GRACE MD Departed Emergency [facility] 12/26/17 5:50pm 11:31pm MATILDA WILLIAM MD Registered Surgical Day Care [facility] 08/19/17 1:19pm HILTON HATFIELD MD
--- NOTE | 2018-06-14 02:21 | Operative Report ---
DATE OF PROCEDURE: April 13, 2018 PREOPERATIVE DIAGNOSES: 1. Bilateral indwelling ureteral stents. 2. Bilateral urolithiasis. POSTOPERATIVE DIAGNOSES: 1. Bilateral indwelling ureteral stents. 2. Bilateral ureterolithiasis. 3. Bilateral nephrolithiasis. 4. Mild cystocele. OPERATIONS PERFORMED: Note these were all staged procedures as part of a multistage, multistep process of managing the patient's urolithiasis. 1. Cystourethroscopy with bilateral removal of indwelling ureteral stents (separate procedure performed for diagnosis of the stents done with separate scope). 2. Bilateral semirigid ureteroscopies with stone manipulation and extraction (separate procedure performed bilaterally for the ureteral stones done with a semirigid scope). 3. Bilateral flexible ureteropyeloscopy with stone manipulation and extraction (separate procedure performed bilaterally with a flexible ureteroscope for the nephrolithiasis). 4. Radiological services for supervision and interpretation of ureteroscopy. 5. Interpretation of retrograde ureteropyelography. 6. Supervision of fluoroscopy longer than 1 hour with no radiologist present. 7. Pelvic examination under anesthesia. ANESTHESIA: General. COMPLICATIONS: None. CLINICAL SUMMARY: Radha Willis is a complicated recurrent stone former. She has bilateral indwelling ureteral stents. She is brought for a staged procedure. She is aware of the risks of bleeding, infection, injury to adjacent structures, need for additional procedures, and elected to proceed. OPERATIVE PROCEDURE IN DETAIL: Informed consent was verified. Radha Willis was properly identified, taken to the operating room, and placed on the cystoscopy table in supine position. Anesthesia was uneventfully begun. The patient was then carefully and gently repositioned in the dorsal lithotomy position with all pressure points well padded. Her genitalia were prepared and draped in usual sterile fashion. The 22.5-Faroese cystoscope sheath with the obturator in place was atraumatically inserted into patient's urethra and the bladder was drained. Panendoscopy of the urinary bladder revealed bilateral indwelling ureteral stents. We first worked on the left hand side, then we worked on the right hand side. A guidewire was then placed alongside the left hand stent and guided to the level of the patient's kidney. The stent was then grasped, completely removed, and discarded. Semirigid ureteroscopy was then performed. We passed the semirigid ureteroscope into the left ureter and discovered stones. We utilized a nitinol tipless basket to atraumatically extract the various stone fragments. Once all ureteral stone fragments were extracted, a secondary guidewire was utilized. We then utilized the flexible ureteroscope to pass it into the level of the patient's kidney with fluoroscopic and videoscopic guidance. We then performed panendoscopy of the intrarenal collecting system, multiple stones were identified. We then made multiple passes with the flexible ureteroscope to extract one stone at a time until all significantly sized stones were extracted. We utilized double-lumen ureteral catheter as well as a secondary guidewire throughout all these manipulations. We also obtained a urine culture from the left kidney due to the fact that there was some whitish material floating around consistent with yeast. Diflucan was ordered. Once all significantly sized stone fragments were extracted and only very fine sand remained, we carefully re-examined the ureter as we exited with the flexile ureteroscope as we ensured that no ureteral stone fragments remained. An identical procedure with identical findings was performed on the right hand side. Interpretation of retrograde ureteropyelography: Contrast was instilled in retrograde fashion bilaterally. Stones were difficult to note as filling defects in light of the contrast throughout the kidney. There was bilateral chronic-appearing hydronephrosis with caliceal blunting noted bilaterally, but we were able to note bilaterally contrast draining down the ureter and into the bladder. There was no evidence of ureteral obstruction on fluoroscopic films at the end of the case. Patient's bladder was drained. The cystoscope was withdrawn. Pelvic examination under anesthesia revealed very minimal cystocele, no rectocele. No abnormal palpable pelvic masses could be appreciated. Patient was then uneventfully reversed from anesthesia and taken to recovery room in stable condition. There were no complications to the procedure. She tolerated the procedure well. Explicit postoperative instructions were given. Will of course follow the patient up on a long-term basis. Job#: [id number]
== END | disposition home or self-care (01) ==
LOC: OR 07:17
PROVIDERS: ATTEND Urology
DX: N20.0 Calculus of kidney (principal); N20.1 Calculus of ureter; Z46.6 Encounter for fitting and adjustment of urinary device; N39.0 Urinary tract infection, site not specified; N13.30 Unspecified hydronephrosis; N13.5 Crossing vessel and stricture of ureter without hydronephrosis; N81.10 Cystocele, unspecified; F32.9 Major depressive disorder, single episode, unspecified; K21.9 Gastro-esophageal reflux disease without esophagitis; Z01.812 Encounter for preprocedural laboratory examination; Z87.891 Personal history of nicotine dependence; Z84.1 Family history of disorders of kidney and ureter
CPT/HCPCS: 36415; 52352; 74420; 80048; 81025; 85025; 87086; 88300; J0696; J1100; J1885; J2001; J2250; J2405; J2765; Q9967; 74018

== ENCOUNTER 2018-04-14 10:42 | Inpatient (IN) | payer BC ==
[~2018-04-14] VITALS: Ht 165.1 cm; Wt 65.5 kg
[~2018-04-14 10:42] MED LIST changes: -BELLADONNA/OPIUM 60 MG SUPP PR ONE; -CEFTRIAXONE SOD 1 GM VIAL ONE; -DEXAMETHASONE SOD PHOS INJ 4 MG/ML VIAL ONE; -FENTANYL CITRATE/PF 100MCG/2 ML INJ ONE; -IOPAMIDOL 610MG/1ML 300 MG/ML VIAL IV ONE; -KETOROLAC TROMETHAMINE 30 MG/ML VIAL ONE; -LEVAQUIN500 MG PO; -LIDOCAINE HCL 2% LOCAL INJ 5 ML SDV VIAL INJ ONE; -METOCLOPRAMIDE HCL 10 MG/2ML VIAL ONE; -MIDAZOLAM HCL 2 MG/2 ML VIAL ONE; -ONDANSETRON HCL 4 MG ORAL DISINTEGRATING TAB ONE; -ONDANSETRON HCL INJ 2 MG/ML VIAL ONE; -PROPOFOL IV EMULSION 10 MG/ML 20 ML VIAL ONE; -SEVOFLURANE INHAL SOLN 250 ML PEN BTL ONE
[2018-04-14] MEDS ORDERED: KETOROLAC TROMETHAMINE 30 MG/ML VIAL IV STA (11:23)
[2018-04-14] MEDS ORDERED: ONDANSETRON HCL INJ 2 MG/ML VIAL IV STA (11:23)
[2018-04-14] MEDS ORDERED: ACETAMINOPHEN 325 MG TAB PO ONE (11:30)
[2018-04-14] MEDS ORDERED: SODIUM CHLORIDE 0.9% 1000ML 1,000 ML IV ONE (11:30)
[2018-04-14 11:32] LABS: BASOPHILS % 0.3 % (0.0-1.0); EOSINOPHILS # (AUTO) 0.1 (0.0-0.4); EOSINOPHILS % 0.6 % (0.0-6.0); HEMATOCRIT 35.2 % (34.2-44.1); HEMOGLOBIN 11.5 g/dL (12.0-16.0); LYMPHOCYTES # (AUTO) 0.7 (1.0-3.2); LYMPHOCYTES % 4.7 % (18.0-39.1); MEAN CORPUSCULAR HEMOGLOBIN 27.8 pg (28-32); MEAN CORPUSCULAR HGB CONC 32.7 g/dL (31-35); MEAN CORPUSCULAR VOLUME 85.2 fL (81-99); MONOCYTES # (AUTO) 0.8 (0.2-0.8); MONOCYTES % 5.5 % (4.4-11.3); NEUTROPHILS # (AUTO) 13.1 (2.1-6.9); NEUTROPHILS % 88.4 % (38.7-80.0); PLATELET COUNT 333 x10e3/uL (140-360); RED BLOOD COUNT 4.13 x10e6/uL (3.6-5.1); RED CELL DISTRIBUTION WIDTH 12.8 % (11.7-14.4)
[2018-04-14 11:35] LABS: BILIRUBIN,URINE NEGATIVE (NEGATIVE); CLARITY,URINE CLOUDY (CLEAR); COLOR,URINE AMBER (YELLOW); KETONES,URINE NEGATIVE (NEGATIVE); LEUKOCYTE ESTERASE ,URINE 2+ (NEGATIVE); NITRITE,URINE NEGATIVE (NEGATIVE); PROTEIN,URINE DIPSTICK 2+ (NEGATIVE); URINE UROBILINOGEN 0.2 mg/dL (0.2 - 1)
[2018-04-14 11:42] LABS: ALBUMIN 3.4 g/dL (3.5-5.0); ALBUMIN/GLOBULIN RATIO 0.7 (0.8-2.0); ANION GAP 13.1 mmol/L (8-16); CALCIUM 9.5 mg/dL (8.4-10.2); CREATININE, SERUM 1.06 mg/dL (0.57-1.11); POTASSIUM 3.1 mmol/L (3.5-5.1)
[2018-04-14] MEDS ORDERED: ONDANSETRON HCL 4 MG ORAL DISINTEGRATING TAB ONE (11:58)
[2018-04-14 12:00] LABS: BACTERIA,URINE FEW /HPF; EPITHELIAL CELLS,URINE FEW /LPF; RBC,URINE >50 /HPF (0-5); WBC,URINE (MAN) 21-50 /HPF (0-5)
[2018-04-14] MEDS ORDERED: KCL 20MEQ/.9 SOD CHL 1,000 ML IV ONE (12:15)
[2018-04-14] MEDS ORDERED: CEFTRIAXONE SOD 1 GM VIAL IV ONE (12:15)
[2018-04-14] MEDS ORDERED: HYOSCYAMINE SULFATE 0.5 MG/ML AMP IV PRN (12:30)
[2018-04-14] MEDS: MEROPENEM 1 GM VIAL IV SCH ×2 (13:10→20:26)
[2018-04-14] MEDS ORDERED: MEROPENEM 1GM 100 ML IV SCH (14:00)
[2018-04-14 14:14] VITALS: BP 107/57
[2018-04-14] MEDS ORDERED: PROMETHAZINE 12.5MG/ NACL 0.9% 12.5 MG/50 ML BAG IV PRN (14:15)
[2018-04-14] MEDS ORDERED: FLUCONAZOLE 200 MG/100 ML 100 ML IV ONE (14:30)
[2018-04-14] MEDS ORDERED: POTASSIUM CHLORIDE 20 MEQ TAB CR PO ONE ×2 (15:15→17:20)
--- NOTE | 2018-04-14 15:45 | History and Physical ---
CHIEF COMPLAINT: Nausea and flank pain. HISTORY OF PRESENT ILLNESS: This is a 38-year-old woman who presents to [facility] emergency room with sudden onset of fever, chills and bilateral flank pain. Yesterday, the patient underwent ureterocystoscopy with bilateral ureteral stent removal. The patient states at 2 o'clock this morning she has been experiencing high fever with shaking chills. The patient also had nausea, but no vomiting. In the emergency room, the patient was found to have a cloudy, jena urine with pH 8.0. The patient had 4+ blood, 2+ leukocyte esterase and greater than 50 white blood cells per high power field. The patient has 21-50 white blood cells per high power field. She also had few bacteria in the urine. The patient was also found to have white blood cell count of 14,700 with 88% segmented neutrophils. The patient's hemoglobin is 11.5 grams/dL. The patient's BUN and creatinine is 12 and 1.06 respectively. The patient's potassium is 3.1. The patient was admitted for further evaluation and treatment. REVIEW OF SYSTEMS GENERAL: Fever and chills since early this morning. The patient has gradually lost weight over the last couple of months. HEENT: No headaches; no visual changes. CARDIOVASCULAR: No chest pain or cough. GI: Complains of nausea but no vomiting since early this morning. : Complains of bilateral flank pain since early this morning. NEUROMUSCULAR: Denies any limb weakness or numbness, but does complain of bilateral flank pain. ALLERGIES: NO KNOWN DRUG ALLERGIES. MEDICATIONS: 1. Vitamin D3 2000 units daily. 2. Colestid 1 gram b.i.d. 3. Fluoxetine 40 mg daily. 4. Omeprazole 40 mg daily. 5. Carafate 1 gram q.i.d. 6. Os-Brendan with vitamin D 500 mg t.i.d. PAST SURGICAL HISTORY: 1. Multiple cystoscopies. 2. Bilateral ureteral stent placement in December 2017. 3. Bilateral ureteral stent removal April 13, 2018. 4. Bilateral tubal ligation. 5. section x3. 6. Laparoscopic cholecystectomy. FAMILY HISTORY: Mother with congestive heart failure and end-stage renal disease as well as type 2 diabetes mellitus. PAST MEDICAL HISTORY: 1. Kidney stones. 2. Depression. 3. GERD. SOCIAL HISTORY: This patient is . She lives with her . She has 3 small children. No history of tobacco or alcohol use. 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 PHYSICAL EXAMINATION GENERAL: She is awake, alert and oriented. She does appear ill but she is very pleasant and cooperative with exam. VITAL SIGNS: Blood pressure 107/57, pulse 90, respiratory rate 18, O2 saturation 98% on room air, temperature 99.2. On arrival to the emergency room, her temperature was 102.2. INTEGUMENT: Skin is warm and dry. No pallor, jaundice, diaphoresis. HEENT: Anicteric sclerae with moist mucous membranes. NECK: Supple. CARDIOVASCULAR: Tachycardia heart rate, regular rhythm. LUNGS: No rales, no rhonchi, no wheezes. ABDOMEN: Soft. Normal bowel sounds. Nontender. SPINE/TORSO: The patient has costovertebral angle tenderness bilaterally. EXTREMITIES: No edema or deformity. NEUROLOGIC: Intact. IMPRESSION 1. Sepsis secondary to pyelonephritis. 2. Status post bilateral ureteral stent removal on April 13, 2018. 3. Recurrent kidney stones. 4. Acute renal failure. PLAN: 1. Intravenous fluids. 2. Replete potassium. 3. Intravenous antibiotics. 4. Follow urine and blood cultures. 5. Consult urology. I spent 45 minutes in the care of this patient. Job#: [id number] MTDD
[2018-04-14 15:55] VITALS: BP 94/54
[2018-04-14 16:00] VITALS: BP 94/54
[2018-04-14] MEDS: SUCRALFATE 1 GM/10 ML SUSP PO SCH ×2 (16:35→20:26)
[2018-04-14] MEDS: PANTOPRAZOLE SOD 40 MG TABEC PO SCH (16:35)
[2018-04-14] MEDS: FAMOTIDINE 20 MG/2 ML VIAL IV SCH (18:05)
[2018-04-14] MEDS: COLESTIPOL HCL 1 G TAB PO SCH (18:05)
[2018-04-14 20:00] VITALS: BP 109/53
[2018-04-14] MEDS: ONDANSETRON HCL 4 MG ORAL DISINTEGRATING TAB PO PRN (20:26)
[2018-04-14] MEDS: SODIUM CHLORIDE 0.9% 1000ML 1,000 ML IV SCH ×2 (20:26→21:00)
[2018-04-14] MEDS: KETOROLAC TROMETHAMINE 30 MG/ML VIAL IV PRN (20:26)
[2018-04-14] MEDS: ACETAMINOPHEN 325 MG TAB PO PRN (20:45)
[2018-04-14] MEDS ORDERED: HYDROMORPHONE 1MG/1ML INJ IV PRN (23:30)
[2018-04-15] VITALS (8 sets, daily range): BP systolic 105–131; BP diastolic 51–59
[2018-04-15] MEDS: HYDROMORPHONE 2MG/ML INJ IV PRN ×2 (00:04→11:16)
[2018-04-15] MEDS: SODIUM CHLORIDE 0.9% 1000ML 1,000 ML IV SCH ×3 (04:29→20:30)
[2018-04-15] MEDS: ACETAMINOPHEN 325 MG TAB PO PRN ×3 (04:29→22:20)
[2018-04-15] MEDS: KETOROLAC TROMETHAMINE 30 MG/ML VIAL IV PRN (04:35)
[2018-04-15] MEDS: MEROPENEM 1 GM VIAL IV SCH ×3 (05:01→21:04)
[2018-04-15] MEDS: ONDANSETRON HCL 4 MG ORAL DISINTEGRATING TAB PO PRN ×2 (06:01→18:20)
[2018-04-15 06:45] LABS: BASOPHILS % 0.2 % (0.0-1.0); EOSINOPHILS # (AUTO) 0.2 (0.0-0.4); EOSINOPHILS % 1.4 % (0.0-6.0); HEMATOCRIT 28.9 % (34.2-44.1); HEMOGLOBIN 9.5 g/dL (12.0-16.0); LYMPHOCYTES # (AUTO) 0.5 (1.0-3.2); LYMPHOCYTES % 3.7 % (18.0-39.1); MEAN CORPUSCULAR HEMOGLOBIN 28.4 pg (28-32); MEAN CORPUSCULAR HGB CONC 32.9 g/dL (31-35); MEAN CORPUSCULAR VOLUME 86.3 fL (81-99); MONOCYTES # (AUTO) 0.9 (0.2-0.8); MONOCYTES % 7.2 % (4.4-11.3); NEUTROPHILS # (AUTO) 11.2 (2.1-6.9); NEUTROPHILS % 86.7 % (38.7-80.0); PLATELET COUNT 248 x10e3/uL (140-360); RED BLOOD COUNT 3.35 x10e6/uL (3.6-5.1); RED CELL DISTRIBUTION WIDTH 13.2 % (11.7-14.4)
[2018-04-15 07:15] LABS: ALANINE AMINOTRANSFERASE 16 IU/L (0-55); ALBUMIN 2.7 g/dL (3.5-5.0); ALBUMIN/GLOBULIN RATIO 0.7 (0.8-2.0); ALKALINE PHOSPHATASE 64 IU/L (40-150); ANION GAP 10.9 mmol/L (8-16); BLOOD UREA NITROGEN 8 mg/dL (7-26); BUN/CREATININE RATIO 9 (6-25); CALCIUM 8.8 mg/dL (8.4-10.2); CARBON DIOXIDE 20 mmol/L (22-29); CHLORIDE 110 mmol/L (98-107); CREATININE, SERUM 0.87 mg/dL (0.57-1.11); EST GLOMERULAR FILTRATION RATE > 60 ML/MIN (60-); GLUCOSE 113 mg/dL (74-118); POTASSIUM 3.9 mmol/L (3.5-5.1); SODIUM 137 mmol/L (136-145)
[2018-04-15] MEDS ORDERED: FLUOXETINE HCL 40 MG PO SCH (09:00)
[2018-04-15] MEDS: FLUOXETINE HCL 20 MG CAP PO SCH (09:13)
[2018-04-15] MEDS: PANTOPRAZOLE SOD 40 MG TABEC PO SCH ×2 (09:13→16:54)
[2018-04-15] MEDS: SUCRALFATE 1 GM/10 ML SUSP PO SCH ×4 (09:13→20:37)
[2018-04-15] MEDS: FAMOTIDINE 20 MG/2 ML VIAL IV SCH ×2 (09:13→16:54)
[2018-04-15] MEDS: COLESTIPOL HCL 1 G TAB PO SCH ×2 (09:13→16:54)
[2018-04-15] MEDS ORDERED: VANCOMYCIN 1GM/NS 250 ML 250 ML IV ONE (16:45)
--- NOTE | 2018-04-15 17:11 | Diagnostic Imaging Report ---
PROCEDURE: Frontal and lateral views of the chest. COMPARISON: None. INDICATIONS: RIGHT SIDE CHEST PAIN FINDINGS: Lines/tubes: None. Lungs: The lungs are well inflated and clear. There is no evidence of pneumonia or pulmonary edema. Pleura: There is no pleural effusion or pneumothorax. Heart and mediastinum: The heart and the mediastinum are normal. Bones: No acute bony abnormality. IMPRESSION: 1. No acute cardiopulmonary disease. Dictated by: Tereso Merritt M.D. on 04/15/2018 at 17:13 Electronically approved by: Tereso Merritt M.D. on 04/15/2018 at 17:13
[2018-04-16] VITALS (7 sets, daily range): BP systolic 112–127; BP diastolic 56–81
[2018-04-16] MEDS: SODIUM CHLORIDE 0.9% 1000ML 1,000 ML IV SCH (04:30)
[2018-04-16] MEDS: ACETAMINOPHEN 325 MG TAB PO PRN ×3 (05:16→21:56)
[2018-04-16] MEDS: HYDROMORPHONE 2MG/ML INJ IV PRN (05:16)
[2018-04-16] MEDS: MEROPENEM 1 GM VIAL IV SCH ×3 (05:16→21:56)
[2018-04-16 06:44] LABS: BASOPHILS % 0.2 % (0.0-1.0); EOSINOPHILS # (AUTO) 0.4 (0.0-0.4); EOSINOPHILS % 4.5 % (0.0-6.0); HEMATOCRIT 27.5 % (34.2-44.1); HEMOGLOBIN 8.8 g/dL (12.0-16.0); LYMPHOCYTES # (AUTO) 0.8 (1.0-3.2); LYMPHOCYTES % 9.2 % (18.0-39.1); MEAN CORPUSCULAR HEMOGLOBIN 27.8 pg (28-32); MONOCYTES # (AUTO) 0.9 (0.2-0.8); MONOCYTES % 10.3 % (4.4-11.3); NEUTROPHILS # (AUTO) 6.4 (2.1-6.9); NEUTROPHILS % 75.4 % (38.7-80.0); PLATELET COUNT 220 x10e3/uL (140-360); RED BLOOD COUNT 3.16 x10e6/uL (3.6-5.1); RED CELL DISTRIBUTION WIDTH 13.4 % (11.7-14.4)
[2018-04-16 07:11] LABS: ALANINE AMINOTRANSFERASE 15 IU/L (0-55); ALBUMIN 2.4 g/dL (3.5-5.0); ALBUMIN/GLOBULIN RATIO 0.6 (0.8-2.0); ALKALINE PHOSPHATASE 64 IU/L (40-150); ANION GAP 8.5 mmol/L (8-16); BLOOD UREA NITROGEN 7 mg/dL (7-26); BUN/CREATININE RATIO 7 (6-25); CALCIUM 8.5 mg/dL (8.4-10.2); CARBON DIOXIDE 23 mmol/L (22-29); CHLORIDE 111 mmol/L (98-107); CREATININE, SERUM 0.98 mg/dL (0.57-1.11); EST GLOMERULAR FILTRATION RATE > 60 ML/MIN (60-); GLUCOSE 85 mg/dL (74-118); POTASSIUM 3.5 mmol/L (3.5-5.1); SODIUM 139 mmol/L (136-145)
[2018-04-16] MEDS: FLUOXETINE HCL 20 MG CAP PO SCH (09:17)
[2018-04-16] MEDS: SUCRALFATE 1 GM/10 ML SUSP PO SCH ×4 (09:17→21:56)
[2018-04-16] MEDS: COLESTIPOL HCL 1 G TAB PO SCH ×2 (09:17→16:27)
[2018-04-16] MEDS: PANTOPRAZOLE SOD 40 MG TABEC PO SCH ×2 (09:17→16:27)
[2018-04-16] MEDS: FAMOTIDINE 20 MG/2 ML VIAL IV SCH ×2 (09:17→16:27)
[2018-04-16] MEDS: VANCOMYCIN 1GM/NS 250 ML 250 ML IV SCH ×2 (10:15→21:56)
[2018-04-17] VITALS (9 sets, daily range): BP systolic 108–126; BP diastolic 67–85
[2018-04-17] MEDS: MEROPENEM 1 GM VIAL IV SCH ×3 (05:56→21:40)
[2018-04-17] MEDS: ACETAMINOPHEN 325 MG TAB PO PRN ×2 (05:57→21:41)
[2018-04-17] MEDS: HYDROMORPHONE 2MG/ML INJ IV PRN (05:57)
[2018-04-17 06:27] LABS: BASOPHILS % 0.4 % (0.0-1.0); EOSINOPHILS # (AUTO) 0.5 (0.0-0.4); HEMATOCRIT 27.4 % (34.2-44.1); LYMPHOCYTES # (AUTO) 0.9 (1.0-3.2); LYMPHOCYTES % 12.8 % (18.0-39.1); MEAN CORPUSCULAR HEMOGLOBIN 27.8 pg (28-32); MEAN CORPUSCULAR HGB CONC 32.8 g/dL (31-35); MEAN CORPUSCULAR VOLUME 84.6 fL (81-99); MONOCYTES # (AUTO) 0.8 (0.2-0.8); MONOCYTES % 11.3 % (4.4-11.3); NEUTROPHILS # (AUTO) 4.7 (2.1-6.9); NEUTROPHILS % 68.2 % (38.7-80.0); PLATELET COUNT 280 x10e3/uL (140-360); RED BLOOD COUNT 3.24 x10e6/uL (3.6-5.1); RED CELL DISTRIBUTION WIDTH 13.2 % (11.7-14.4)
[2018-04-17 06:47] LABS: ANION GAP 9.5 mmol/L (8-16); BLOOD UREA NITROGEN 8 mg/dL (7-26); BUN/CREATININE RATIO 9 (6-25); CALCIUM 9.2 mg/dL (8.4-10.2); CARBON DIOXIDE 26 mmol/L (22-29); CHLORIDE 108 mmol/L (98-107); CREATININE, SERUM 0.85 mg/dL (0.57-1.11); EST GLOMERULAR FILTRATION RATE > 60 ML/MIN (60-); GLUCOSE 90 mg/dL (74-118); POTASSIUM 3.5 mmol/L (3.5-5.1); SODIUM 140 mmol/L (136-145)
[2018-04-17] MEDS: COLESTIPOL HCL 1 G TAB PO SCH ×2 (08:58→17:51)
[2018-04-17] MEDS: FAMOTIDINE 20 MG/2 ML VIAL IV SCH ×2 (08:58→17:51)
[2018-04-17] MEDS: SUCRALFATE 1 GM/10 ML SUSP PO SCH ×4 (08:58→21:40)
[2018-04-17] MEDS: FLUOXETINE HCL 20 MG CAP PO SCH (08:58)
[2018-04-17] MEDS: PANTOPRAZOLE SOD 40 MG TABEC PO SCH ×2 (08:58→17:52)
[2018-04-17] MEDS: VANCOMYCIN 1GM/NS 250 ML 250 ML IV SCH ×2 (10:15→21:40)
[2018-04-17] MEDS: KETOROLAC TROMETHAMINE 30 MG/ML VIAL IV PRN (18:20)
[2018-04-18 04:50] VITALS: BP 116/52
[2018-04-18] MEDS: MEROPENEM 1 GM VIAL IV SCH ×2 (06:03→14:05)
[2018-04-18 06:26] LABS: BASOPHILS % 0.4 % (0.0-1.0); EOSINOPHILS # (AUTO) 0.6 (0.0-0.4); EOSINOPHILS % 8.2 % (0.0-6.0); HEMATOCRIT 29.2 % (34.2-44.1); HEMOGLOBIN 9.7 g/dL (12.0-16.0); LYMPHOCYTES % 14.5 % (18.0-39.1); MEAN CORPUSCULAR HEMOGLOBIN 28.2 pg (28-32); MEAN CORPUSCULAR HGB CONC 33.2 g/dL (31-35); MEAN CORPUSCULAR VOLUME 84.9 fL (81-99); MONOCYTES # (AUTO) 0.7 (0.2-0.8); NEUTROPHILS # (AUTO) 4.4 (2.1-6.9); NEUTROPHILS % 66.2 % (38.7-80.0); PLATELET COUNT 318 x10e3/uL (140-360); RED BLOOD COUNT 3.44 x10e6/uL (3.6-5.1); RED CELL DISTRIBUTION WIDTH 13.2 % (11.7-14.4)
[2018-04-18 07:05] LABS: ANION GAP 12.7 mmol/L (8-16); BLOOD UREA NITROGEN 12 mg/dL (7-26); BUN/CREATININE RATIO 14 (6-25); CALCIUM 9.4 mg/dL (8.4-10.2); CARBON DIOXIDE 28 mmol/L (22-29); CHLORIDE 105 mmol/L (98-107); CREATININE, SERUM 0.88 mg/dL (0.57-1.11); EST GLOMERULAR FILTRATION RATE > 60 ML/MIN (60-); GLUCOSE 89 mg/dL (74-118); POTASSIUM 3.7 mmol/L (3.5-5.1); SODIUM 142 mmol/L (136-145)
[2018-04-18 07:28] VITALS: BP 111/71
[2018-04-18] MEDS: FAMOTIDINE 20 MG/2 ML VIAL IV SCH ×2 (09:03→16:47)
[2018-04-18] MEDS: COLESTIPOL HCL 1 G TAB PO SCH ×2 (09:03→16:47)
[2018-04-18] MEDS: FLUOXETINE HCL 20 MG CAP PO SCH (09:03)
[2018-04-18] MEDS: SUCRALFATE 1 GM/10 ML SUSP PO SCH ×2 (09:03→13:03)
[2018-04-18] MEDS: PANTOPRAZOLE SOD 40 MG TABEC PO SCH ×2 (09:03→16:47)
[2018-04-18 09:08] VITALS: BP 111/71
[2018-04-18] MEDS: ONDANSETRON HCL 4 MG ORAL DISINTEGRATING TAB PO PRN ×2 (09:21→15:01)
[2018-04-18] MEDS: VANCOMYCIN 1GM/NS 250 ML 250 ML IV SCH (10:24)
[2018-04-18] MEDS: KETOROLAC TROMETHAMINE 30 MG/ML VIAL IV PRN (10:34)
[2018-04-18 11:45] VITALS: BP 113/69
[2018-04-18 15:58] VITALS: BP 104/66
[2018-04-18] MEDS ORDERED: LEVAQUIN500 MG PO (16:16)
--- NOTE | 2018-04-18 16:59 | Diagnostic Imaging Report ---
Two view chest x-ray INDICATION: Fever, back pain and tightness COMPARISON: Chest x-ray 04/15/2018. FINDINGS: The cardiomediastinal silhouette is normal. There is no evidence of hilar lymphadenopathy. The pulmonary vascular markings are normal. There is no evidence of focal consolidation or pleural effusion. Evaluation of the osseous structures demonstrates no focal abnormality. Cholecystectomy clips are present. IMPRESSION: No active cardiopulmonary disease. Signed by: Dr. Evangelina Yao MD on 04/18/2018 4:55 PM
--- NOTE | 2018-04-22 09:42 | Discharge Summary ---
ADMIT DIAGNOSES 1. Sepsis secondary to pyelonephritis. 2. Status post bilateral ureteral stent removal on April 13, 2018. 3. Recurrent kidney stones. 4. Acute renal failure. DISCHARGE DIAGNOSES 1. Sepsis secondary to pyelonephritis, resolved. 2. Pyelonephritis, resolving. 3. Nicole albicans urinary tract infection. 4. Recurrent kidney stones. 5. Acute renal failure, resolved. 6. Status post bilateral ureteral stent removal on April 13, 2018. HOSPITAL COURSE: This is a 38-year-old woman who was initially admitted to [facility] with the diagnosis of sepsis secondary to pyelonephritis. The patient had actually undergone bilateral ureteral stent removal on April 13, 2018. This woman has a history of recurrent kidney stones. Also, on admission she was diagnosed with acute renal failure. The patient's renal failure resolved with intravenous fluids. The patient's sepsis resolved with intravenous antibiotics, namely meropenem and vancomycin. On admission, the patient's white blood cell count was 14,700 with 88% segmented neutrophils. On the day of discharge, the patient's white blood cell count was 6600 with 66% segmented neutrophils. The patient initially was started on meropenem, and 2 days after admission the patient was started on intravenous vancomycin. Once vancomycin was started, the patient's sepsis symptoms, namely her persistent fevers improved dramatically. The patient's hospitalization was unremarkable. The patient was seen by her urologist during this hospitalization, namely Dr. Elver Flood. The patient's condition on discharge was stable. On the day of discharge, the patient's BUN and creatinine was 12 and 0.88 respectively. When the patient was admitted, her BUN and creatinine was 12 and 1.06 respectively. Urine cultures during this hospitalization did reveal the presence of Nicole albicans. However, blood culture did not reveal any growth. The patient's condition on discharge was stable. DISCHARGE MEDICATIONS 1. Levofloxacin 250 mg daily for 10 days. 2. Fluoxetine 40 mg daily. 3. Vitamin D3 2000 units daily. 4. Colestid 1 g b.i.d. 5. Omeprazole 40 mg daily. 6. Carafate 1 g q.i.d. 7. Os-Brendan with vitamin D 500 mg daily. FOLLOWUP INSTRUCTIONS: The patient was instructed to follow up with her primary care physician, namely myself, Dr. Holden Reyes within 10-14 days. The patient was instructed to follow up with Dr. Flood, urologist, within 2-3 weeks. HOLDEN REYES MD Job#: [id number] [place]
== END 2018-04-18 18:54 | disposition home or self-care (01) | DRG 872 ==
LOC: ER 10:42 → ERHOLD 12:37 → MED/SURG2 13:41
PROVIDERS: ADMIT Internal Medicine; ATTEND Internal Medicine
DX: A41.9 Sepsis, unspecified organism (principal); N17.9 Acute kidney failure, unspecified; B37.49 Other urogenital candidiasis; N12 Tubulo-interstitial nephritis, not specified as acute or chronic; B96.89 Other specified bacterial agents as the cause of diseases classified elsewhere; D64.9 Anemia, unspecified; N20.0 Calculus of kidney
CPT/HCPCS: 36415; 71046; 80048; 80053; 80202; 81001; 83605; 85025; 87040; 87086; 99284; J0696; J1450; J1885; J2185; J2550; J3370; J7030

== ENCOUNTER 2024-08-07 21:36 | Emergency (ER) | payer SELFPAY ==
[~2024-08-07] VITALS: Ht 165.1 cm; Wt 83.9 kg
[~2024-08-07 21:36] MED LIST changes: +LEVAQUIN500 MG PO
[2024-08-07 22:00] LABS: BASOPHILS % 0.4 % (0.0-1.0); EOSINOPHILS # (AUTO) 0.1 (0.0-0.4); EOSINOPHILS % 1.2 % (0.0-6.0); HEMATOCRIT 40.5 % (34.2-44.1); HEMOGLOBIN 13.2 g/dL (12.0-16.0); LYMPHOCYTES # (AUTO) 1.9 (1.0-3.2); LYMPHOCYTES % 27.4 % (18.0-39.1); MEAN CORPUSCULAR HEMOGLOBIN 29.6 pg (28-32); MEAN CORPUSCULAR HGB CONC 32.6 g/dL (31-35); MEAN CORPUSCULAR VOLUME 90.8 fL (81-99); MONOCYTES # (AUTO) 0.6 (0.2-0.8); MONOCYTES % 8.4 % (4.4-11.3); NEUTROPHILS # (AUTO) 4.3 (2.1-6.9); NEUTROPHILS % 62.3 % (38.7-80.0); PLATELET COUNT 266 x10e3/uL (140-360); RED BLOOD COUNT 4.46 x10e6/uL (3.6-5.1); RED CELL DISTRIBUTION WIDTH 13.3 % (11.7-14.4); WHITE BLOOD COUNT 6.82 x10e3/uL (4.8-10.8)
[2024-08-07] MEDS: SODIUM CHLORIDE 0.9% 1000ML 1,000 ML IV ONE (22:02)
[2024-08-07] MEDS: ONDANSETRON HCL INJ 2MG/ML 2ML 2 MG/ML VIAL IV STA (22:03)
[2024-08-07] MEDS: KETOROLAC TROMETHAMINE 30 MG/ML VIAL IV STA (22:03)
[2024-08-07 22:10] LABS: CLARITY,URINE CLOUDY (CLEAR); COLOR,URINE YELLOW (YELLOW)
[2024-08-07 22:11] LABS: BILIRUBIN,URINE NEGATIVE (NEGATIVE); GLUCOSE, URINE NEGATIVE (NEGATIVE); KETONES,URINE NEGATIVE (NEGATIVE); LEUKOCYTE ESTERASE ,URINE 1+ (NEGATIVE); NITRITE,URINE NEGATIVE (NEGATIVE); PH,URINE 6 (5 - 7); PROTEIN,URINE DIPSTICK NEGATIVE (NEGATIVE); URINE UROBILINOGEN 0.2 mg/dL (0.2 - 1)
[2024-08-07 22:13] LABS: BACTERIA,URINE MANY /HPF; RBC,URINE 21-50 /HPF (0-5); WBC,URINE (MAN) >50 /HPF (0-5)
[2024-08-07 22:14] LABS: CALCIUM OXALATE CRYSTALS,UR MODERATE (FEW); EPITHELIAL CELLS,URINE MODERATE /LPF; HYALINE CASTS 0-1 (0-1); MUCUS,URINE FEW (RARE); RENAL EPITHELIAL CELLS,URINE FEW; TRANSITIONAL EPI CELLS,URINE FEW
[2024-08-07 22:22] LABS: ALANINE AMINOTRANSFERASE 16 IU/L (0-55); ALBUMIN 3.9 g/dL (3.5-5.0); ALBUMIN/GLOBULIN RATIO 1.2 (0.8-2.0); ALKALINE PHOSPHATASE 63 IU/L (40-150); ANION GAP 13.5 mmol/L (8-16); BILIRUBIN,TOTAL 0.4 mg/dL (0.2-1.2); BLOOD UREA NITROGEN 12 mg/dL (7-26); BUN/CREATININE RATIO 12 (6-25); CALCIUM 9.3 mg/dL (8.4-10.2); CARBON DIOXIDE 23 mmol/L (22-29); CHLORIDE 107 mmol/L (98-107); CREATININE, SERUM 1.04 mg/dL (0.57-1.11); EST GLOMERULAR FILTRATION RATE 68 ML/MIN (>=60); GLUCOSE 124 mg/dL (74-118); LIPASE 36 U/L (8-78); POTASSIUM 3.5 mmol/L (3.5-5.1); SODIUM 140 mmol/L (136-145); TOTAL PROTEIN 7.2 g/dL (6.5-8.1)
[2024-08-07] MEDS ORDERED: IOPAMIDOL 370 MG/ML 100 ML INFUS..BTL INJ ONE (22:49)
[2024-08-08] MEDS: Morphine 4mg INJECTION 4 MG/ML INJ IV ONE
[2024-08-08] MEDS ORDERED: FLOMAX0.4 MG PO (00:43)
[2024-08-08] MEDS ORDERED: LEVOFLOXACIN500 MG PO (00:43)
[2024-08-08] MEDS ORDERED: ACETAMINOPHEN-1 EAC4 PO (00:43)
[2024-08-08] MEDS ORDERED: ONDANSETRON ODT4 MG PO (00:43)
[2024-08-08 00:49] VITALS: PULSE 73; RESP 16; TEMP 97.9; O2SAT 96
== END 2024-08-08 00:49 | disposition home or self-care (01) ==
LOC: ER 21:41
DX: R10.31 Right lower quadrant pain (principal); N13.2 Hydronephrosis with renal and ureteral calculous obstruction; N39.0 Urinary tract infection, site not specified; K21.9 Gastro-esophageal reflux disease without esophagitis; F17.210 Nicotine dependence, cigarettes, uncomplicated
CPT/HCPCS: 36415; 74177; 80053; 81001; 83690; 84702; 85025; 87086; 99284; J0696; J1885; J2270; J2405; J7030; Q9967